=== PATIENT | male | born 1990 | race Asian ===

== ENCOUNTER 2020-08-26 12:12 | Emergency (ER) | payer OTHER ==
[~2020-08-26] VITALS: Ht 172.7 cm; Wt 63.6 kg
--- NOTE | 2020-08-26 13:02 | NUR ---
[employer] from the patient's travel insurance company phoned to inquire about the patient's status. She reports they will fax information regarding his case to the ED to be placed with his [email or web address] Phone number is , extension [phone], Case number is [id number].
[2020-08-26 14:06] LABS: BASOPHILS % (AUTO) 0.6 % (0-1); EOSINOPHILS # (AUTO) 0.1 X10'3 (0-0.9); HEMATOCRIT 46.8 % (42.0-52.0); HEMOGLOBIN 15.8 g/dl (14.0-17.9); LYMPHOCYTES # (AUTO) 1.1 X10'3 (1.1-4.8); LYMPHOCYTES % (AUTO) 19.1 % (21-51); MEAN CORPUSCULAR HEMOGLOBIN 31.6 PG (27.0-31.0); MEAN CORPUSCULAR HGB CONC 33.8 g/dL (33.0-36.5); MEAN CORPUSCULAR VOLUME 93.5 FL (78-98); MEAN PLATELET VOLUME 8.7 FL (7.4-10.4); MONOCYTES # (AUTO) 0.3 X10'3 (0-0.9); MONOCYTES % (AUTO) 5.7 % (2-12); NEUTROPHILS # (AUTO) 4.4 X10'3 (1.8-7.7); NEUTROPHILS % (AUTO) 73.6 % (42-75); PLATELET COUNT 218 X10'3 (140-440); RED BLOOD COUNT 5.01 X10'6 (4.70-6.10)
[2020-08-26 14:14] LABS: ALANINE AMINOTRANSFERASE 16 U/L (12-78); ALBUMIN 4.4 G/DL (3.4-5.0); ALBUMIN/GLOBULIN RATIO 1.3 (1.1-1.5); ALKALINE PHOSPHATASE 58 IU/L (46-116); ANION GAP 6 (8-16); ASPARTATE AMINO TRANSFERASE 12 U/L (10-37); BILIRUBIN,TOTAL 1.9 MG/DL (0.1-1.0); BLOOD UREA NITROGEN 9 MG/DL (7-18); BUN/CREATININE RATIO 9.7 (5.4-32.0); CALCIUM 9.5 MG/DL (8.5-10.1); CHLORIDE 104 MMOL/L (99-107); CREATININE 0.93 MG/DL (0.60-1.10); GLUCOSE 100 MG/DL (70-104); POTASSIUM 3.9 MMOL/L (3.5-5.1); SODIUM 138 MMOL/L (135-145); TOTAL CARBON DIOXIDE 27.7 MMOL/L (24-32); TOTAL PROTEIN 7.7 G/DL (6.4-8.2); eGFR > 90 ML/MIN
[2020-08-26 14:32] LABS: D-DIMER < 0.19 MG/L FEU (0-0.50)
[2020-08-26 15:05] VITALS: BP 120/70
== END 2020-08-26 15:32 | disposition home or self-care (01) ==
LOC: ER 12:13
DX: R07.89 Other chest pain (principal); R06.02 Shortness of breath; R53.1 Weakness
CPT/HCPCS: 36415; 71045; 80053; 84484; 85025; 85379; 93005; 99285